=== PATIENT | female | born 1995 | race Asian ===

== ENCOUNTER 2019-02-11 12:59 | Emergency (ER) | payer BC ==
[~2019-02-11] VITALS: Ht 157.5 cm; Wt 56.8 kg
[2019-02-11 13:07] VITALS: TEMP 98.7
[2019-02-11] MEDS ORDERED: CIPRO 250MG TA250 MG PO (14:36)
[2019-02-11] MEDS ORDERED: AZO-STANDARD95 MG PO (14:37)
[2019-02-11 14:45] LABS: COLLECTION METHOD CLEAN CATCH
[2019-02-11 14:55] LABS: PH 7 (5-8); SQUAMOUS EPITHELIAL None Seen /hpf; URINE APPEARANCE Clear; URINE BACTERIA None Seen /hpf; URINE BILIRUBIN Negative (NEGATIVE); URINE BLOOD Negative (NEGATIVE); URINE GLUCOSE Negative (NEGATIVE); URINE KETONE Negative (NEGATIVE); URINE LEUKOCYTE ESTERASE Negative (NEGATIVE); URINE NITRATE Negative (NEGATIVE); URINE PROTEIN(semi-quant) Negative (NEGATIVE); URINE RBC 0-2 /hpf; URINE UROBILINOGEN Negative (NEGATIVE)
[2019-02-11 14:56] LABS: URINE COLOR Yellow
[2019-02-11 15:20] VITALS: BP 117/60
[2019-02-11 15:43] LABS: BASO # 0.1 (0.0-0.2); BASO % 0.7 % (0.0-2.0); EOS # 0.1 (0.0-0.7); EOS % 1.4 % (0-4.0); GRAN # 3.7 (1.4-6.5); GRAN % 48.5 % (42.2-75.2); HEMATOCRIT 41.4 % (37.0-47.0); HEMOGLOBIN 13.6 g/dl (12.5-16.0); LYMPH # 3.3 (1.2-3.4); LYMPH % 43.9 % (20.0-51.0); MEAN CELL VOLUME 92 fl (80.0-100.0); MEAN CORPUSCULAR HEMOGLOBIN 30 pg (27.0-31.0); MEAN CORPUSCULAR HGB CONC 33 g/dl (33.0-37.0); MEAN PLATELET VOLUME 9.2 fl (7.4-10.4); MONO # 0.4 (0.1-0.6); MONO % 5.4 % (1.7-9.3); PLATELET COUNT 283 K/mm3 (130-400); REDCELL DISTRIBUTION WIDTH-CV 12.1 % (11.5-14.5)
[2019-02-11 16:08] LABS: ALBUMIN 4.5 gm/dL (3.5-5.0); BILIRUBIN,TOTAL 0.7 mg/dL (0.0-1.0); CALCIUM 9.1 mg/dL (8.4-10.2); CREATININE, serum 0.85 (0.52-1.25); POTASSIUM 3.8 mmol/L (3.4-5.0); TOTAL PROTEIN 7.9 gm/dL (6.4-8.2)
[2019-02-11] MEDS ORDERED: ZOFRAN ODT4 MG PO (16:36)
[2019-02-11 16:44] VITALS: PULSE 71
== END 2019-02-11 16:44 | disposition home or self-care (01) ==
LOC: COL.ER 12:59
PROVIDERS: Physician Assistant
DX: N39.0 Urinary tract infection, site not specified (principal); F41.9 Anxiety disorder, unspecified